=== PATIENT | male | born 1950 | race Caucasian/White ===

== ENCOUNTER 2024-05-27 08:10 | Inpatient (IN) ==
[2024-05-27] MEDS: SODIUM CHLORIDE 0.9% 1,000 ML IV ONE ×2 (08:26→10:00)
--- NOTE | 2024-05-27 08:26 | Emergency Department Note ---
Impression & Plan Syncope, Dental trauma, Avulsed tooth, Contusion of face, Cervical strain, acute, Anemia, RUSLAN (acute kidney injury), Acute UTI (urinary tract infection) ED Provider Note NAME: RICARDO [id number] JENISE AGE: 74 SEX: M : 1950 ARRIVES VIA: Ambulance INFORMANT: Patient, ED PROVIDER(S): Curtis Chamberlain DO CHIEF COMPLAINT: Trauma HPI: The patient is a 74-year-old male who presented to the emergency department after a syncopal episode. The patient fell forward striking his face. He does have dental trauma but he also complains of headache as well as neck pain. The patient was placed into a collar and arrives at the emergency department via ambulance. The patient states has not been eating or drinking recently. He was noted to have hypotension prior to arrival. There was no reported fever. The patient denies having any black or tarry stools. He does complain of abdominal pain as well as chest pain. The patient states that he spit out the tooth that was his front tooth. He has significant dental caries. The patient reportedly had a nosebleed as well but he is denying this at this time. This was given a report from the senior care. The patient does not take any blood thinners. There was a loss of consciousness associated with the syncope. ROS: See above HPI for pertinent positives & negatives. A total of 10 systems reviewed and were otherwise negative. PAST MEDICAL HISTORY: See Below PAST SURGICAL HISTORY: See Below FAMILY HISTORY: See Below SOCIAL HISTORY: See Below HOME MEDICATIONS: See Below ALLERGIES: See Below VITALS: See Below PHYSICAL EXAMINATION: GENERAL: The is awake and alert. He is very anxious. EYES: The conjunctivae are clear. The pupils are round and reactive. EARS, NOSE, MOUTH AND THROAT: The nose is without any evidence of any deformity. Missing tooth was noted in the front upper gumline. No active bleeding was noted. NECK: Rigid cervical collar was placed prior to arrival. RESPIRATORY: Normal respiratory effort is noted there is no evidence of wheezing rhonchi or rales CARDIOVASCULAR: Regular rate and rhythm noted there no murmurs rubs or gallops normal S1 normal S2. GASTROINTESTINAL: The abdomen was distended. There is diffuse tenderness to palpation but no guarding or rigidity. BACK: No midline tenderness or or step-off noted range of motion in flexion extension as well as rotation no signs of muscle spasm noted MUSCULOSKELETAL/EXTREMITIES: There is no evidence of gross deformity full range of motion is noted in the hips and shoulders. SKIN: There is no obvious evidence of any rash. There are no petechiae, pallor or cyanosis noted. NEUROLOGIC: Patient is awake alert and oriented x3 strength is symmetric patellar reflexes are 2+ bilaterally MEDICAL DECISION MAKING: The patient is a 74-year-old male who presented to the emergency department for an evaluation after having a syncopal episode. The patient fell forward striking his face. He had an avulsed tooth. He also had dental trauma and facial contusion. Patient was found to have hypotension in the emergency department. He was treated with IV fluids. No obvious source of infection could be found. The patient was reevaluated multiple times. I discussed the patient's laboratory and radiographic studies with him. Given his findings I discussed his condition with the on-call [facility] hospitalist. They have agreed to evaluate the patient in the emergency department for further management and disposition. Triage Nursing notes reviewed. Prior medical records reviewed Vital Signs: reviewed and remarkable for initial hypotension. Differential diagnosis: Vasovagal event, dehydration, infection, hypoglycemia, electrolyte abnormalities, cardiac sources, intracerebral event, pulmonary embolism, seizure, toxicologic, neurologic, as well as other pathologies. ER treatment provided: See below Diagnostics interpreted by me: ECG: EKG was obtained in the emergency department. My interpretation is sinus bradycardia at 56 bpm. There is no ectopy. There is no acute ST segment abnormalities noted. This was compared to a tracing from June 02, 2023. There was a decrease in the rate otherwise no changes were noted. Cardiac Monitoring: An order was placed for continuous cardiac monitoring. The monitor shows a rate of 82 bpm with sinus rhythm. Laboratory studies: As stated above and show below. Imaging studies: See below. Radiographic imaging was reviewed by myself Consultation(s): I discussed this case with Dr. Yan who is on-call for the [facility] Hospitalist group. Past Med/Surg History Problem List (Updated 05/27/24 @ 12:20 by Curtis Chamberlain DO) Acute UTI (urinary tract infection) (Acute) RUSLAN (acute kidney injury) (Acute) Anemia (Acute) Cervical strain, acute (Acute) Contusion of face (Acute) Avulsed tooth (Acute) Dental trauma (Acute) Syncope (Acute) Encounter for pre-operative examination Gross hematuria Bladder stone Medical History Myelodysplastic syndrome Chronic anemia Inmate in correctional facility [facility] GERD (gastroesophageal reflux disease) Osteoarthritis BPH (benign prostatic hyperplasia) Hypothyroid Hyperlipemia Chronic pain HTN (hypertension) Adjustment disorder with mixed anxiety and depressed mood Paroxysmal SVT (supraventricular tachycardia) 08/22/2021 Surgical History Surgical history unknown Social History Smoking Status: Unknown if ever smoked Second Hand Exposure: No; Do You Dip or Chew Tobacco: No (PENG Ramírez); Hx Alcohol Use: No ([facility] Ramírez) Hx Substance Use: No (PENG Ramírez) Preferred Language: Lao Communication Ability: Effective Rock Duster Required: No Beliefs That Will Affect Care: None Current Living Situation: Other Current Living Situation Comment: [facility] Feels Safe at Home: Yes Allergies Allergies Allergy/AdvReac Type Severity Reaction Status Date / Time No Known Allergies Allergy Verified 06/02/23 15:59 Home Meds Home Medications Medication Instructions Recorded Confirmed atorvastatin 40 mg tablet 40 mg PO QAM 06/20/22 06/02/23 duloxetine 60 mg capsule,delayed 60 mg PO QAM 06/20/22 06/02/23 release levothyroxine 112 mcg capsule 112 mcg PO QAM 06/20/22 06/02/23 duloxetine 30 mg capsule,delayed 30 mg PO DAILY 06/02/23 06/02/23 release lisinopril 10 mg tablet 10 mg PO DAILY 06/02/23 06/02/23 Results & Data (ED) Vital Signs Vital Signs - 24 hr 05/27/24 08:12 05/27/24 08:30 05/27/24 08:31 Temperature 36.8 C Temperature Source Oral Pulse Rate 62 59 L 57 L Pulse Rate [Apical] Pulse Rate from SpO2 Sensor Respiratory Rate 20 15 Respiratory Effort / Characteristics Non-Labored Respiratory Depth Normal Blood Pressure 104/64 Blood Pressure [Left Arm] Blood Pressure Mean 77 Blood Pressure Mean [Left Arm] Pulse Oximetry 97 Oxygen Delivery Method Room Air Sepsis Recent Fever Within 48 Hours No Sepsis New/Unexplained Change in Mental Status Yes Sepsis Action Taken by Nursing No Action Required 05/27/24 08:42 05/27/24 08:44 05/27/24 08:46 Temperature Temperature Source Pulse Rate 63 Pulse Rate [Apical] 59 L Pulse Rate from SpO2 Sensor 63 Respiratory Rate 12 20 Respiratory Effort / Characteristics Respiratory Depth Blood Pressure Blood Pressure [Left Arm] 112/67 Blood Pressure Mean Blood Pressure Mean [Left Arm] 82 Pulse Oximetry 99 99 99 Oxygen Delivery Method Room Air Room Air Sepsis Recent Fever Within 48 Hours Sepsis New/Unexplained Change in Mental Status Sepsis Action Taken by Nursing 05/27/24 09:02 05/27/24 09:06 05/27/24 09:12 Temperature Temperature Source Pulse Rate 88 77 Pulse Rate [Apical] Pulse Rate from SpO2 Sensor 87 76 Respiratory Rate 23 22 Respiratory Effort / Characteristics Respiratory Depth Blood Pressure Blood Pressure [Left Arm] 116/67 Blood Pressure Mean Blood Pressure Mean [Left Arm] 83 Pulse Oximetry 99 99 Oxygen Delivery Method Sepsis Recent Fever Within 48 Hours Sepsis New/Unexplained Change in Mental Status Sepsis Action Taken by Nursing 05/27/24 09:21 05/27/24 09:33 05/27/24 09:42 Temperature Temperature Source Pulse Rate 77 79 61 Pulse Rate [Apical] Pulse Rate from SpO2 Sensor 76 79 61 Respiratory Rate 13 17 17 Respiratory Effort / Characteristics Respiratory Depth Blood Pressure 95/77 L 117/65 Blood Pressure [Left Arm] Blood Pressure Mean 83 82 Blood Pressure Mean [Left Arm] Pulse Oximetry 99 97 100 Oxygen Delivery Method Sepsis Recent Fever Within 48 Hours Sepsis New/Unexplained Change in Mental Status Sepsis Action Taken by Nursing 05/27/24 10:00 05/27/24 12:00 Temperature Temperature Source Pulse Rate Pulse Rate [Apical] 62 60 Pulse Rate from SpO2 Sensor Respiratory Rate 19 20 Respiratory Effort / Characteristics Respiratory Depth Blood Pressure Blood Pressure [Left Arm] 115/66 94/53 L Blood Pressure Mean Blood Pressure Mean [Left Arm] 82 66 Pulse Oximetry 98 98 Oxygen Delivery Method Room Air Room Air Sepsis Recent Fever Within 48 Hours Sepsis New/Unexplained Change in Mental Status Sepsis Action Taken by Detention Medications Current Medication List: was personally reviewed by me Laboratory Data Attestation: I reviewed the patient's lab results. 05/27/24 09:10 05/27/24 09:13 Lab Results 05/27/24 05/27/24 05/27/24 Range/Units 08:30 08:36 09:10 WBC 4.69 L (4.8-10.8) K/ul RBC 3.45 L (4.70-6.10) M/uL Hgb 10.1 L (14.0-18.0) g/dl POC Hgb 12.6 L (14.0-18.0) g/dl Hct 31.8 L (42.0-52.0) % POC Hct 37 L (42-52) % MCV 92.2 (80.0-100.0) fL MCH 29.3 (25.0-34.0) pg MCHC 31.8 L (32.0-36.0) g/dL RDW Std Deviation 63.9 H (36.4-46.3) fL RDW Coeff of Brissa 19.2 H (11.5-14.5) % Plt Count 62 L (130-400) K/uL Immature Gran % (Auto) 1.9 % Neut % (Auto) 69.8 % Lymph % (Auto) 13.6 % Ches[place] % (Auto) 14.5 % Eos % (Auto) 0.0 % Baso % (Auto) 0.2 % Neut # (Auto) 3.27 (1.40-6.50) K/uL Lymph # (Auto) 0.64 L (1.20-3.40) K/uL [place] # (Auto) 0.68 H (0.11-0.59) K/uL Eos # (Auto) 0.00 (0.00-0.50) K/uL Baso # (Auto) 0.01 (0.00-0.20) K/uL Immature Gran # (Auto) 0.09 (0.01-0.20) K/uL Absolute Nucleated RBC 0.03 (0.00-0.12) K/uL Nucleated RBC % (auto) 0.6 % Polychromasia 1+ Anisocytosis Present Tear Drop Cells 1+ PT Cancelled INR Cancelled APTT Cancelled PTT Ratio Cancelled VBG pH 7.36 (7.36-7.41) VBG pCO2 44 (38-50) mmHg VBG pO2 < 20 mmHg VBG HCO3 25 mmol/L VBG O2 Saturation < 60.0 % VBG Base Excess -0.8 mEq/L POC Sodium 139 (135-144) mmol/L Sodium 139 (136-145) mmol/L POC Potassium 6.2 H* (3.3-5.0) mmol/L Potassium TNP POC Chloride 103 (101-112) mmol/L Chloride 104 (98-107) mmol/L Carbon Dioxide 27 (21-32) mmol/L POC Total CO2 25 (24-31) mmol/L Anion Gap 8 (3-11) POC Anion Gap 18.0 (16-25) mmol/L POC BUN 30 H (7-18) mg/dl BUN 23 (6-23) mg/dl Creatinine 1.60 H (0.6-1.4) mg/dl POC Creatinine 1.7 H (0.6-1.3) mg/dl Est Cr Clr Drug Dosing 39.8 ml/min eGFR 44.65 BUN/Creatinine Ratio 14.4 (10-20) Glucose 118 H (70-99(Fasting)) mg/dl POC Glucose (other) 118 H (70-99) mg/dl Lactate 2.3 H* (0.4-2.0) mmol/L Calcium 10.0 (8.6-10.3) mg/dl POC Ioniz Calcium Nnamdi 1.16 (1.12-1.32) mmol/l Magnesium 2.3 (1.7-2.4) mg/dl Total Bilirubin 1.0 (0.2-1.0) mg/dl Direct Bilirubin TNP AST TNP ALT 13 (7-52) U/L Alkaline Phosphatase 75 (34-104) U/L Troponin I High Sens 4.0 (0-20) pg/ml Total Protein 8.0 (6.0-8.3) gm/dl Albumin 4.7 (3.4-5.0) gm/dl Procalcitonin Cancelled < 0.02 Urine Color Urine Appearance (Clear) Urine pH (4.5-7.5) Ur Specific Harrison (1.000-1.030) Urine Protein (Negative) Urine Glucose (UA) (Negative) Urine Ketones (Negative) Urine Blood (Negative) Urine Nitrite (Negative) Urine Bilirubin (Negative) Urine Urobilinogen (Negative) Ur Leukocyte Esterase (Negative) Urine WBC (Auto) (0-5) /hpf Urine RBC (Auto) (0-2) /hpf U Hyaline Cast (Auto) (0-2) /lpf U Epithel Cells (Auto) (0-2) /hpf Urine Bacteria (Auto) (None Seen) SARS-CoV-2 (PCR) NEGATIVE (Negative) Influenza Type A (PCR) Negative (Neg) Influenza Type B (PCR) Negative (Neg) RSV (RT-PCR) Negative (Neg) 05/27/24 05/27/24 05/27/24 Range/Units 09:11 09:13 11:40 WBC (4.8-10.8) K/ul RBC (4.70-6.10) M/uL Hgb (14.0-18.0) g/dl POC Hgb (14.0-18.0) g/dl Hct (42.0-52.0) % POC Hct (42-52) % MCV (80.0-100.0) fL MCH (25.0-34.0) pg MCHC (32.0-36.0) g/dL RDW Std Deviation (36.4-46.3) fL RDW Coeff of Brissa (11.5-14.5) % Plt Count (130-400) K/uL Immature Gran % (Auto) % Neut % (Auto) % Lymph % (Auto) % Ches[place] % (Auto) % Eos % (Auto) % Baso % (Auto) % Neut # (Auto) (1.40-6.50) K/uL Lymph # (Auto) (1.20-3.40) K/uL [place] # (Auto) (0.11-0.59) K/uL Eos # (Auto) (0.00-0.50) K/uL Baso # (Auto) (0.00-0.20) K/uL Immature Gran # (Auto) (0.01-0.20) K/uL Absolute Nucleated RBC (0.00-0.12) K/uL Nucleated RBC % (auto) % Polychromasia Anisocytosis Tear Drop Cells PT 11.6 INR 1.1 APTT 26 PTT Ratio 1.0 VBG pH (7.36-7.41) VBG pCO2 (38-50) mmHg VBG pO2 mmHg VBG HCO3 mmol/L VBG O2 Saturation % VBG Base Excess mEq/L POC Sodium (135-144) mmol/L Sodium (136-145) mmol/L POC Potassium (3.3-5.0) mmol/L Potassium 4.2 POC Chloride (101-112) mmol/L Chloride (98-107) mmol/L Carbon Dioxide (21-32) mmol/L POC Total CO2 (24-31) mmol/L Anion Gap (3-11) POC Anion Gap (16-25) mmol/L POC BUN (7-18) mg/dl BUN (6-23) mg/dl Creatinine (0.6-1.4) mg/dl POC Creatinine (0.6-1.3) mg/dl Est Cr Clr Drug Dosing ml/min eGFR BUN/Creatinine Ratio (10-20) Glucose (70-99(Fasting)) mg/dl POC Glucose (other) (70-99) mg/dl Lactate 1.5 (0.4-2.0) mmol/L Calcium (8.6-10.3) mg/dl POC Ioniz Calcium Nnamdi (1.12-1.32) mmol/l Magnesium (1.7-2.4) mg/dl Total Bilirubin (0.2-1.0) mg/dl Direct Bilirubin 0.3 H AST 14 ALT (7-52) U/L Alkaline Phosphatase (34-104) U/L Troponin I High Sens (0-20) pg/ml Total Protein (6.0-8.3) gm/dl Albumin (3.4-5.0) gm/dl Procalcitonin Urine Color Yellow Urine Appearance Clear (Clear) Urine pH 6.0 (4.5-7.5) Ur Specific Harrison 1.039 H (1.000-1.030) Urine Protein Trace H (Negative) Urine Glucose (UA) Negative (Negative) Urine Ketones Negative (Negative) Urine Blood Negative (Negative) Urine Nitrite Negative (Negative) Urine Bilirubin Negative (Negative) Urine Urobilinogen Negative (Negative) Ur Leukocyte Esterase 2+ H (Negative) Urine WBC (Auto) >50 H (0-5) /hpf Urine RBC (Auto) 0-2 (0-2) /hpf U Hyaline Cast (Auto) 3-5 H (0-2) /lpf U Epithel Cells (Auto) 0-2 (0-2) /hpf Urine Bacteria (Auto) None Seen (None Seen) SARS-CoV-2 (PCR) (Negative) Influenza Type A (PCR) (Neg) Influenza Type B (PCR) (Neg) RSV (RT-PCR) (Neg) Administered Medications Discontinued Medications Sodium Chloride (Nss) 1,000 mls @ 999 mls/hr IV .Q1H1M ONE Stop: 05/27/24 09:21 Last Infusion: 05/27/24 09:55 Dose: Infused Documented By: Admin: 05/27/24 08:26 Dose: 999 mls/hr Documented By: ES Sodium Chloride (Nss) 1,000 mls @ 999 mls/hr IV .Q1H1M ONE Stop: 05/27/24 10:50 Last Infusion: 05/27/24 11:11 Dose: Infused Documented By: Admin: 05/27/24 10:00 Dose: 999 mls/hr Documented By: ML Ioversol (Optiray 320 125ml) 119 ml IV ONCE ONE Stop: 05/27/24 08:59 Last Admin: 05/27/24 08:53 Dose: 119 ml Documented By: BRStephanie Imaging Data Attestation: I personally reviewed and interpreted this imaging study as follows: My Impression: CT the brain was obtained in the emergency department. My interpretation is no intracranial hemorrhage or mass effect, final report below. CT of the chest was obtained in the emergency department. My interpretation is no free air or definite filtrate, final report below. Radiologist's Impression: Abdomen/Pelvis CT 05/27/24 08:[address] WITH IV CONTRAST HISTORY: Acute abdominal trauma status post fall trauma TECHNIQUE: Multiaxial CT images of the abdomen and pelvis were performed following the IV administration of 119 cc of Optiray, A dose lowering technique was utilized adhering to the principles of ALARA. COMPARISON STUDY: CTA chest of same day, CT abdomen and pelvis June 02, 2023 FINDINGS: Mild subsegmental bibasilar atelectasis versus scarring. No pneumoperitoneum. Unremarkable spleen, pancreas and adrenal glands. Contracted gallbladder with cholelithiasis. Unremarkable liver. Patent portal vein. Nonobstructing calculi in the kidneys redemonstrated measuring up to 5 mm in the interpolar left kidney. 2 mm calculus of the superior pole right kidney. No ureteral calculi or hydronephrosis. Prostatomegaly. Urinary bladder wall thickening which a angulation and increased enhancement. Atherosclerosis of the aorta and branch vessels. No lymphadenopathy. Small hiatal hernia with distal esophageal wall thickening. There is mild circumferential wall thickening of the rectum and rectosigmoid junction. Moderate colonic fecal retention. Noninflamed appendix. ORIF changes within the left hemipelvis. Degenerative changes of the spine, pelvis and hips. No acute fracture identified. Chronic compression deformity with vertebroplasty changes at L5. Cortical thickening at S3 suggestive of a healed chronic fracture. Numerous chronic thoracolumbar compression deformities appear unchanged. IMPRESSION: 1. No acute posttraumatic intra-abdominal or intrapelvic abnormality identified. 2. No acute fracture. 3. Nonobstructing bilateral nephrolithiasis. 4. Cholelithiasis. 5. Prostamegaly with chronic outlet obstruction. 6. Nonspecific mild wall thickening of the rectosigmoid may be secondary to partial distention. A mild proctocolitis could appear similarly. 7. Small hiatal hernia with suggestion of distal esophagitis. ACT 112: Negative or not required by law. The above report was generated using voice recognition software. It may contain grammatical, syntax or spelling errors. Electronically signed by: Marco Archer M.D. 05/27/2024 9:[address] 05/27/24 08:21 CT cervical spine wo con CLINICAL HISTORY: 74 years-old Male with trauma. Acute neck pain status post fall COMPARISON: June 02, 2023. TECHNIQUE: Multiple axial CT images of the cervical spine were obtained without contrast. A dose lowering technique was utilized adhering to the principles of ALARA. FINDINGS: No acute fracture or subluxation identified. Demineralized appearance of the bones with multilevel moderate to severe intervertebral disc space narrowing redemonstrated. The cervical soft tissues appear unremarkable. Medial deviation of the right vocal fold. The visualized lung apices appear clear. IMPRESSION: No acute cervical spine fracture or subluxation identified. ACT 112: Negative or not required by law. The above report was generated using voice recognition software. It may contain grammatical, syntax or spelling errors. Electronically signed by: Marco Archer M.D. 05/27/2024 9:48 AM Chest CTA 05/27/24 08:21 CT ANGIOGRAPHY OF THE CHEST, PULMONARY EMBOLUS PROTOCOL CLINICAL HISTORY: Fall. COMPARISON STUDY: Chest CT June 02, 2023. TECHNIQUE: Following IV administration of 119 mL of Optiray, helical axial images of the chest were obtained utilizing the pulmonary embolus protocol. Maximal intensity projections and sagittal and coronal reformats were viewed on an independent 3D workstation. IV contrast was administered without complication. Automated exposure control was utilized for the study. A dose lowering technique was utilized adhering to the principles of ALARA. FINDINGS: No pulmonary emboli are identified. There is no thoracic aortic dissection. No pericardial effusion is present. The heart is mildly enlarged. No mediastinal hematoma is present. There is a small hiatal hernia with mild distal esophageal wall thickening. No pneumothorax or pleural effusion is present. Subpleural groundglass opacities favor atelectasis. There are no suspicious pulmonary nodules. No acute fractures within the bony thorax are present. There are old, healed bilateral rib fractures. There are gallstones within the gallbladder. The abdomen and pelvis CT will be reported separately. IMPRESSION: 1. No acute traumatic findings within the chest. 2. No pulmonary emboli identified. 3. Small hiatal hernia. Circumferential distal esophageal wall thickening which is nonspecific although may reflect esophagitis. ACT 112: Negative or not required by law. Electronically signed by: Tevin Sequeira M.D. 05/27/2024 9:[address] 05/27/24 08:21 CT head/brain wo con CLINICAL HISTORY: 74 years-old Male with trauma. Acute head trauma TECHNIQUE: Multiple axial CT images of the head were obtained without contrast. A dose lowering technique was utilized adhering to the principles of ALARA. CT DOSE: 3309.05 mGy.cm COMPARISON: CT cervical spine of same day, head CT June 02, 2023 FINDINGS: No acute intracranial hemorrhage, midline shift, intracranial mass, hydrocephalus, territorial ischemia or abnormal extra-axial collection. Involutional changes with chronic microvascular ischemic disease. The calvarium is intact. Chronic nasal bone fractures. The paranasal sinuses, mastoid air cells, and middle ear cavities are clear. IMPRESSION: No acute intracranial abnormality or calvarial fracture. ACT 112: Negative or not required by law. The above report was generated using voice recognition software. It may contain grammatical, syntax or spelling errors. Electronically signed by: Marco Archer M.D. 05/27/2024 9:44 AM Discharge Plan Visit Data Chief Complaint: Fall Stated Complaint: fall, facial injury ED Provider: Curtis Chamberlain Discharge Problem: Syncope, Dental trauma, Avulsed tooth, Contusion of face, Cervical strain, acute, Anemia, RUSLAN (acute kidney injury), Acute UTI (urinary tract infection) Patient Disposition: Being Evaluated by Hospitalist Forms Stand Alone Forms: [facility] Prescriptions Prescriptions: No Action duloxetine 60 mg capsule,delayed release(DR/EC) 60 mg PO QAM Rx Instructions: TOTAL DOSE 90 MG--TAKES WITH 30 MG CAP. atorvastatin 40 mg tablet 40 mg PO QAM levothyroxine 112 mcg capsule 112 mcg PO QAM lisinopril 10 mg Tablet 10 mg PO DAILY duloxetine 30 mg Capsule,Delayed Release(Dr/Ec) 30 mg PO DAILY Rx Instructions: TOTAL DOSE 90 MG--TAKES WITH 60 MG CAP. Referrals Referrals: PENG,Darrell [Primary Care Provider] - Discharge Problem: Syncope Qualifiers: Syncope type: unspecified Qualified Code(s): R55 - Syncope and collapse Dental trauma Qualifiers: Encounter type: initial encounter Qualified Code(s): S09.93XA - Unspecified injury of face, initial encounter Avulsed tooth Qualifiers: Encounter type: initial encounter Qualified Code(s): S03.2XXA - Dislocation of tooth, initial encounter Contusion of face Qualifiers: Encounter type: initial encounter Qualified Code(s): S00.83XA - Contusion of other part of head, initial encounter Cervical strain, acute Qualifiers: Encounter type: initial encounter Qualified Code(s): S16.1XXA - Strain of muscle, fascia and tendon at neck level, initial encounter Anemia Qualifiers: Anemia type: unspecified type Qualified Code(s): D64.9 - Anemia, unspecified
[2024-05-27] MEDS: OPTIRAY 320 125ml IV ONE (08:53)
[2024-05-27 09:11] LABS: iSTAT Creatinine 1.7 mg/dl (0.6-1.3); iSTAT Hemoglobin 12.6 g/dl (14.0-18.0); iSTAT Ionized Calcium 1.16 mmol/l (1.12-1.32); iSTAT Potassium 6.2 mmol/L (3.3-5.0)
[2024-05-27 09:13] LABS: Alanine Aminotransferase 13 U/L (7-52); Albumin Level 4.7 gm/dl (3.4-5.0); Alkaline Phosphatase 75 U/L (34-104); Anion Gap 8 (3-11); BUN Creatinine Ratio 14.4 (10-20); Blood Urea Nitrogen 23 mg/dl (6-23); Carbon Dioxide 27 mmol/L (21-32); Chloride 104 mmol/L (98-107); Creatinine Clr Calc Pharmacy 39.8 ml/min; Glucose 118 mg/dl (70-99(Fasting)); Magnesium 2.3 mg/dl (1.7-2.4); Sodium 139 mmol/L (136-145)
--- NOTE | 2024-05-27 09:29 | CT Scan Report ---
CT ANGIOGRAPHY OF THE CHEST, PULMONARY EMBOLUS PROTOCOL CLINICAL HISTORY: Fall. COMPARISON STUDY: Chest CT June 02, 2023. TECHNIQUE: Following IV administration of 119 mL of Optiray, helical axial images of the chest were o btained utilizing the pulmonary embolus protocol. Maximal intensity projections and sagittal and cor onal reformats were viewed on an independent 3D workstation. IV contrast was administered without co mplication. Automated exposure control was utilized for the study. A dose lowering technique was ut ilized adhering to the principles of ALARA. FINDINGS: No pulmonary emboli are identified. There is no thoracic aortic dissection. No pericardial effusion is present. The heart is mildly enlarged. No mediastinal hematoma is present. There is a sm all hiatal hernia with mild distal esophageal wall thickening. No pneumothorax or pleural effusion is present. Subpleural groundglass opacities favor atelectasis. There are no suspicious pulmonary nodul es. No acute fractures within the bony thorax are present. There are old, healed bilateral rib fractu res. There are gallstones within the gallbladder. The abdomen and pelvis CT will be reported separate ly. IMPRESSION: 1. No acute traumatic findings within the chest. 2. No pulmonary emboli identified. 3. Small hiatal hernia. Circumferential distal esophageal wall thickening which is nonspecific althou gh may reflect esophagitis. ACT 112: Negative or not required by law. Electronically signed by: Tevin Sequeira M.D. 05/27/2024 9:26 AM
[2024-05-27 09:31] LABS: Base Excess VBG -0.8 mEq/L; HCO3 VBG 25 mmol/L; Oxygen Saturation VBG < 60.0 %; PCO2 VBG 44 mmHg (38-50); PO2 VBG < 20 mmHg; pH VBG 7.36 (7.36-7.41)
[2024-05-27 09:40] LABS: Hematocrit (blood only) 31.8 % (42.0-52.0); Hemoglobin 10.1 g/dl (14.0-18.0); Mean Corpuscular Hemoglobin 29.3 pg (25.0-34.0); Mean Corpuscular Hgb Conc 31.8 g/dL (32.0-36.0); Mean Corpuscular Volume 92.2 fL (80.0-100.0); Nucleated RBC # (auto) 0.03 K/uL (0.00-0.12); Nucleated RBC % (auto) 0.6 %; Platelet Count 62 K/uL (130-400); RDW Coefficient of Variation 19.2 % (11.5-14.5); RDW Standard Deviation 63.9 fL (36.4-46.3); Red Blood Count 3.45 M/uL (4.70-6.10); White Blood Count 4.69 K/ul (4.8-10.8)
--- NOTE | 2024-05-27 09:46 | CT Scan Report ---
CT head/brain wo con CLINICAL HISTORY: 74 years-old Male with trauma. Acute head trauma TECHNIQUE: Multiple axial CT images of the head were obtained without contrast. A dose lowering tech nique was utilized adhering to the principles of ALARA. CT DOSE: 3309.05 mGy.cm COMPARISON: CT cervical spine of same day, head CT June 02, 2023 FINDINGS: No acute intracranial hemorrhage, midline shift, intracranial mass, hydrocephalus, territorial ischem ia or abnormal extra-axial collection. Involutional changes with chronic microvascular ischemic disea se. The calvarium is intact. Chronic nasal bone fractures. The paranasal sinuses, mastoid air cells, and middle ear cavities are clear. IMPRESSION: No acute intracranial abnormality or calvarial fracture. ACT 112: Negative or not required by law. The above report was generated using voice recognition software. It may contain grammatical, syntax o r spelling errors. Electronically signed by: Marco Archer M.D. 05/27/2024 9:44 AM
--- NOTE | 2024-05-27 09:50 | CT Scan Report ---
CT cervical spine wo con CLINICAL HISTORY: 74 years-old Male with trauma. Acute neck pain status post fall COMPARISON: June 02, 2023. TECHNIQUE: Multiple axial CT images of the cervical spine were obtained without contrast. A dose low ering technique was utilized adhering to the principles of ALARA. FINDINGS: No acute fracture or subluxation identified. Demineralized appearance of the bones with mul tilevel moderate to severe intervertebral disc space narrowing redemonstrated. The cervical soft tissues appear unremarkable. Medial deviation of the right vocal fold. The visualiz ed lung apices appear clear. IMPRESSION: No acute cervical spine fracture or subluxation identified. ACT 112: Negative or not required by law. The above report was generated using voice recognition software. It may contain grammatical, syntax o r spelling errors. Electronically signed by: Marco Archer M.D. 05/27/2024 9:48 AM
[2024-05-27 09:52] LABS: Influenza A virus by PCR Negative (Neg); Influenza B virus by PCR Negative (Neg); RSV by PCR Negative (Neg); SARS CoV2 RNA(COVID-19) Ceph NEGATIVE (Negative)
[2024-05-27 09:52] LABS: Anisocytosis Present; Basophils # (auto) 0.01 K/uL (0.00-0.20); Basophils % (auto) 0.2 %; Immature Granulocytes # (auto) 0.09 K/uL (0.01-0.20); Immature Granulocytes % (auto) 1.9 %; Lymphocytes # (auto) 0.64 K/uL (1.20-3.40); Lymphocytes % (auto) 13.6 %; Monocytes # (auto) 0.68 K/uL (0.11-0.59); Monocytes % (auto) 14.5 %; Neutrophils # (auto) 3.27 K/uL (1.40-6.50); Neutrophils % (auto) 69.8 %; Polychromasia 1+; Tear Drop Cells 1+
[2024-05-27 09:53] LABS: Bilirubin Direct 0.3 mg/dl (0-0.2); Potassium 4.2 mmol/L (3.5-5.1)
--- NOTE | 2024-05-27 09:55 | CT Scan Report ---
ABDOMEN AND PELVIS CT WITH IV CONTRAST HISTORY: Acute abdominal trauma status post fall trauma TECHNIQUE: Multiaxial CT images of the abdomen and pelvis were performed following the IV administrat ion of 119 cc of Optiray, A dose lowering technique was utilized adhering to the principles of ALARA . COMPARISON STUDY: CTA chest of same day, CT abdomen and pelvis June 02, 2023 FINDINGS: Mild subsegmental bibasilar atelectasis versus scarring. No pneumoperitoneum. Unremarkable spleen, pancreas and adrenal glands. Contracted gallbladder with cholelithiasis. Unremarkable liver. Patent portal vein. Nonobstructing calculi in the kidneys redemonstrated measuring up to 5 mm in the interpolar left kidn ey. 2 mm calculus of the superior pole right kidney. No ureteral calculi or hydronephrosis. Prostatom egaly. Urinary bladder wall thickening which a angulation and increased enhancement. Atherosclerosis of the aorta and branch vessels. No lymphadenopathy. Small hiatal hernia with distal esophageal wall thickening. There is mild circumferential wall thicke je of the rectum and rectosigmoid junction. Moderate colonic fecal retention. Noninflamed appendix. ORIF changes within the left hemipelvis. Degenerative changes of the spine, pel vis and hips. No acute fracture identified. Chronic compression deformity with vertebroplasty changes at L5. Cortical thickening at S3 suggestive of a healed chronic fracture. Numerous chronic thoracolu mbar compression deformities appear unchanged. IMPRESSION: 1. No acute posttraumatic intra-abdominal or intrapelvic abnormality identified. 2. No acute fracture. 3. Nonobstructing bilateral nephrolithiasis. 4. Cholelithiasis. 5. Prostamegaly with chronic outlet obstruction. 6. Nonspecific mild wall thickening of the rectosigmoid may be secondary to partial distention. A mil d proctocolitis could appear similarly. 7. Small hiatal hernia with suggestion of distal esophagitis. ACT 112: Negative or not required by law. The above report was generated using voice recognition software. It may contain grammatical, syntax o r spelling errors. Electronically signed by: Marco Archer M.D. 05/27/2024 9:53 AM
[2024-05-27 10:03] LABS: INR 1.1 (0.9-1.1); Partial Thromboplastin Time 26 Seconds (21-31); Prothrombin Time 11.6 Seconds (9.0-12.0)
--- NOTE | 2024-05-27 11:34 | History & Physical Report ---
Date of Service May 27, 2024 Assessment & Plan (1) Syncope: Plan: Syncope Poor p.o. intake in the last several days. Patient denies nausea/vomiting/abdominal pain, just notes he does not generally have a good appetite lays in bed all day since getting incarcerated and does not like present food Patient stood up and was walking to the door when he got lightheaded dizzy and suddenly syncopized. Reports he did not have much warning prior to this. No chest pain or chest pressure. No incontinence or seizure-like activity Patient is with an RUSLAN and clinically volume contracted with cracked mucous membranes. Suspect orthostatic with severe prerenal depletion EKG is without acute ischemic findings or heart block, high sensitive troponin is normal Will continue to hydrate, follow on medical telemetry overnight Patient denies any GI symptoms. Denies symptoms including dysuria/polyuria. Does have a history of intermittent hematuria, with UA with some leukocyte esterase and blood. Empirically covered with Rocephin pending UCx results Trauma series without evidence of intracranial, cervical, or solid organ injury/bleeding (2) Avulsed tooth: Plan: Patient is already seen dentist PENG Ramírez. Can have follow-up as outpatient for this (3) RUSLAN (acute kidney injury): Plan: Fluids as above, trend BMP daily Renally dose medications as needed Lisinopril held (4) GERD (gastroesophageal reflux disease): Plan: PPI (5) Hypothyroid: Plan: Continue Synthroid, TSH pending (6) Hyperlipemia: Plan: Continue atorvastatin (7) Adjustment disorder with mixed anxiety and depressed mood: Plan: Continue duloxetine Plan DVT prophylaxis: SCDs x 24 hours due to some bleeding from levels to site. Start heparin versus Lovenox based on renal function 05/28 Disposition: Medical telemetry CODE STATUS: Full code Diet: Liberalized regular, boost. Push orals History of Present Illness Primary Care Provider: PENG Ramírez Dung is a 74-year-old male with past medical history of anxiety/depression, hyperlipidemia, hypothyroidism, hypotension who presented with an episode of syn cope and is found to be with an RUSLAN. Poor p.o. intake in the last several days per signout. On ER assessment [id number] potassium initially reported to 6.2, on lab recheck this was corrected to 4.2; no hyperkalemia was present. EKG is without peaked T waves. Creatinine is acutely elevated 0.8 up to 1.6, although ratio was not elevated. Lactate 2.3, repeat pending at time of admission consu ltation. Patient has received 2 L NSS in the ER. Troponin is normal Procalcitonin is normal Quad screen is negative ER trauma evaluation including CThead with no acute intracranial abnormality/fracture. C-spine without fracture/subluxation. CTA chest shows no acute traumatic findings, no PE. Small hiatal hernia? Esophagitis is noted. CTA/P without acute intra-abdominal/intrapelvic abnormalities/no evidence of solid organ injury or bleeding. Mild wall thickening of the rectosigmoid colon? Partial distention versus mild proctocolitis. Small hiatal hernia with suggestion of esophagitis as noted. Urinary bladder wall thickening is noted. UA is pending. No presyncoptal sx. Per group home report pt became dizzy, went to walk to the door and had just got up, and subsequently passed out. Left upper tooth struck and was lost, naima at [facility] will see on dc. Did see patient prior to ER visit. Weak on his feet normally, but suddenly passed out today. Has felt more weak as he is not very active in the group home an dlays in bed all the time since his sentencing. No chest pain or chest pressure No recent illnesses. No fevers or chills. No abdomianl pain. Has had some loose bowels intermittently in the past but none in the last week to his knowledge. Reports he has a hard time remember details due to bad dementia. Appetite poor. Not very hungry in general. Poor PO 4-5 days, snacks a little on pastries but doesn't like the assisted food in general or pasta. No pain with meals. No abd pain. BMs brown, no melena/hematochezia/benton colored stools. Former smoker quit 1999, uses a vape now in group home No ETOH NKDA MedHx Revieweed: eHTN, hypothyroid,HLD, BPH/LUTS, adjustment disorder with anxiety/depression mixed. Takes baby aspirin daily for primary prevention. no hx stents/bipass. Denies CVA. Allergies Allergy/AdvReac Type Severity Reaction Status Date / Time No Known Allergies Allergy Verified 06/02/23 15:59 Home Medications Medication Instructions Recorded Confirmed Type atorvastatin 40 mg tablet 40 mg PO QAM 06/20/22 06/02/23 History duloxetine 60 mg capsule,delayed 60 mg PO QAM 06/20/22 06/02/23 History release levothyroxine 112 mcg capsule 112 mcg PO QAM 06/20/22 06/02/23 History duloxetine 30 mg capsule,delayed 30 mg PO DAILY 06/02/23 06/02/23 History release lisinopril 10 mg tablet 10 mg PO DAILY 06/02/23 06/02/23 History Past Med/Surg History Problem List (Updated 05/27/24 @ 12:20 by Curtis Chamberlain DO) Acute UTI (urinary tract infection) (Acute) RUSLAN (acute kidney injury) (Acute) Anemia (Acute) Cervical strain, acute (Acute) Contusion of face (Acute) Avulsed tooth (Acute) Dental trauma (Acute) Syncope (Acute) Encounter for pre-operative examination Gross hematuria Bladder stone Medical History Myelodysplastic syndrome Chronic anemia Inmate in correctional facility [facility] GERD (gastroesophageal reflux disease) Osteoarthritis BPH (benign prostatic hyperplasia) Hypothyroid Hyperlipemia Chronic pain HTN (hypertension) Adjustment disorder with mixed anxiety and depressed mood Paroxysmal SVT (supraventricular tachycardia) 08/22/2021 Surgical History Surgical history unknown Social History Smoking Status: Unknown if ever smoked Second Hand Exposure: No; Do You Dip or Chew Tobacco: No (PENG Ramírez); Hx Alcohol Use: No (PENG Ramírez) Hx Substance Use: No (PENG Ramírez) Preferred Language: Guinean Communication Ability: Effective Outpatient Coordinator Required: No Beliefs That Will Affect Care: None Current Living Situation: Other Current Living Situation Comment: [facility] Ram[facility]rez Feels Safe at Home: Yes Physical Exam Physical Exam: General: No acute distress, cooperative. Oriented to name, place, year, month and answers questions appropriately. HEENT: Small amount of dried blood on the lower lip. Left upper front tooth absent with small area of blood at avulsion site, slight oozing is present. No other facial abnormality. Vision and hearing grossly intact. Pupils equal and reactive to light Pulm: CTAB A&P. -wheezes, -rales, -rhonchi. Symmetrical chest rise. No increased work of breathing. No respiratory distress. Cardiac: RRR, -mrg. Radial pulses intact and symmetrical. Abdominal: Nontender, nondistended, soft. BS present. Extremities: Warm, dry. No lower extremity edema Results & Data Results & Data Vital Signs (Past 12 Hours) Vital Signs Temp Pulse Pulse Resp BP BP Pulse Ox 05/27/24 10:00 62 19 115/66 98 05/27/24 09:42 61 17 117/65 100 05/27/24 09:33 79 17 95/77 L 97 05/27/24 09:21 77 13 99 05/27/24 09:12 77 22 99 05/27/24 09:06 88 23 99 05/27/24 09:02 116/67 05/27/24 08:46 59 L 20 112/67 99 05/27/24 08:44 99 05/27/24 08:42 63 12 99 05/27/24 08:31 57 L 05/27/24 08:30 59 L 15 05/27/24 08:12 36.8 C 62 20 104/64 97 O2 Del Method 05/27/24 10:00 Room Air 05/27/24 09:42 05/27/24 09:33 05/27/24 09:21 05/27/24 09:12 05/27/24 09:06 05/27/24 09:02 05/27/24 08:46 Room Air 05/27/24 08:44 Room Air 05/27/24 08:42 05/27/24 08:31 05/27/24 08:30 05/27/24 08:12 Room Air PG Care Time/CCT Total # of Minutes Spent Total Time Spent with Patient: Total time spent is greater than 50% in coordination of care (as documented) at patient's floor/unit and/or counseling patient: Coding Level of Care Code 69316 INT INP/OBS CARE 375MIN Diagnoses Syncope R55 Syncope type: unspecified Avulsed tooth S03.2XXA Encounter type: initial encounter RUSLAN (acute kidney injury) N17.9 GERD (gastroesophageal reflux disease) K21.9 Hypothyroid E03.9 Hyperlipemia E78.5 Adjustment disorder with mixed anxiety and depressed mood F43.23 (1) Syncope Syncope type: unspecified Qualified Code(s): R55 - Syncope and collapse (2) Avulsed tooth Encounter type: initial encounter Qualified Code(s): S03.2XXA - Dislocation of tooth, initial encounter
[2024-05-27 12:02] LABS: Appearance Urine Clear (Clear); Bacteria Urine Automated None Seen (None Seen); Bilirubin Urine Negative (Negative); Blood Urine Negative (Negative); Color Urine Yellow; Epithelial Cell Urine Auto 0-2 /hpf (0-2); Glucose Urine UA Negative (Negative); Ketones Urine Negative (Negative); Leukocyte Esterase Urine 2+ (Negative); Nitrite Urine Negative (Negative); Protein Urine Trace (Negative); RBC Urine Automated 0-2 /hpf (0-2); Specific Gravity Urine 1.039 (1.000-1.030); Urobilinogen Urine Negative (Negative); WBC Urine Automated >50 /hpf (0-5)
[2024-05-27] MEDS: cefTRIAXone SODIUM 2,000 MG/50 ML BAG IV STA (12:36)
[2024-05-27] MEDS ORDERED: ACETAMINOPHEN 325 MG TAB PO PRN (14:25)
[2024-05-27 14:36] VITALS: RESP 18
--- NOTE | 2024-05-27 15:36 | Electrocardiogram Report ---
Test Reason : Blood Pressure : */* mmHG Vent. Rate : 56 BPM Atrial Rate : 56 BPM P-R Int : 190 ms QRS Dur : 78 ms QT Int : 410 ms P-R-T Axes : 68 26 47 degrees QTcB Int : 395 ms Sinus bradycardia Otherwise normal ECG When compared with ECG of 02-Jun-2023 12:57, Vent. rate has decreased by 44 bpm QT has shortened Confirmed by Curtis Argueta ([id number]) on 05/27/2024 3:36:10 PM Referred By: [facility] Confirmed By: Curtis Argueta
[2024-05-27] MEDS: NICOTINE 14 MG/24 HR PATCH TD SCH (20:30)
[2024-05-28] MEDS: LEVOTHYROXINE SODIUM 137 MCG TABLET PO SCH (06:02)
[2024-05-28 07:16] VITALS: TEMP 97.9
[2024-05-28 08:03] LABS: Hematocrit (blood only) 29.4 % (42.0-52.0); Hemoglobin 9.4 g/dl (14.0-18.0); Mean Corpuscular Hemoglobin 29.1 pg (25.0-34.0); Nucleated RBC # (auto) 0.02 K/uL (0.00-0.12); Nucleated RBC % (auto) 0.9 %; Platelet Count 58 K/uL (130-400); RDW Coefficient of Variation 18.8 % (11.5-14.5); RDW Standard Deviation 62.7 fL (36.4-46.3); Red Blood Count 3.23 M/uL (4.70-6.10); White Blood Count 2.27 K/ul (4.8-10.8)
[2024-05-28 08:15] LABS: BUN Creatinine Ratio 21.6 (10-20); Calcium 9.1 mg/dl (8.6-10.3); Creatinine Clr Calc Pharmacy 83.9 ml/min
[2024-05-28 08:21] LABS: Eosinophils # (auto) 0.01 K/uL (0.00-0.50); Eosinophils % (auto) 0.4 %; Immature Granulocytes # (auto) 0.03 K/uL (0.01-0.20); Immature Granulocytes % (auto) 1.3 %; Lymphocytes # (auto) 0.91 K/uL (1.20-3.40); Lymphocytes % (auto) 40.1 %; Monocytes # (auto) 0.32 K/uL (0.11-0.59); Monocytes % (auto) 14.1 %; Neutrophils % (auto) 44.1 %; Polychromasia 1+; Tear Drop Cells 1+
[2024-05-28 08:31] LABS: Thyroid Stimulating Hormone 0.565 uIu/ml (0.300-4.500)
[2024-05-28] MEDS: ATORVASTATIN 40 MG TAB PO SCH (09:56)
[2024-05-28] MEDS: DULoxetine HCL 60 MG CAP PO SCH (09:56)
[2024-05-28 10:53] VITALS: BP 102/64; PULSE 67; O2SAT 100
[2024-05-28] MEDS: POLYETHYLENE (MIRALAX) 17 GM PACK PO PRN (11:12)
[2024-05-28] MEDS: CIPROFLOXACIN 250 MG TAB PO ONE (14:52)
--- NOTE | 2024-05-28 18:21 | Discharge Summary ---
Discharge Summary Date of Service May 28, 2024 Principal Dx & Hospital Course #1 = Principal Diagnosis (1) Syncope: Presented after syncopal episode at the long-term; patient stood up and was walking towards the door when he got lightheaded/dizzy and suddenly syncopized. Reports he did not have much warning prior to this. No chest pain or chest pressure. No incontinence or seizure-like activity reported. - Patient reported poor PO intake x 4-5 days. Reports this is due to not liking the long-term food. Denies nausea, vomiting, abdominal pain, or change in bowel habits - RUSLAN on admission, resolved after IV fluids - Clinically volume contracted on admission - Trauma series without evidence of intracranial, cervical, or solid organ injury/bleeding - EKG without acute ischemic findings or heart block, high sensitive troponin is normal - UA with some leukocyte esterase and WBC; denies symptoms > Empirically treated with Cipro 250 mg BID x 3 days - Orthostatic vital signs negative - Suspect syncopal episode was orthostatic syncope with severe prerenal depletion in setting of minimal PO intake over several days Discharged back to [facility] on 05/28 (2) Avulsed tooth: Patient is already seen dentist [facility]. Can have follow-up as outpatient for this (3) RUSLAN (acute kidney injury): RUSLAN on admission suspect due to dehydration/decreased PO intake over several days - Resolved after receiving IV fluids - Encouraged to stay hydrated (4) GERD (gastroesophageal reflux disease): Continue PPI (5) Hypothyroid: Continue Synthroid, TSH WNL (6) Hyperlipemia: Continue atorvastatin (7) Adjustment disorder with mixed anxiety and depressed mood: Continue duloxetine Plan CODE STATUS: Full code Notes For Next Care Provider Syncopal event at the long-term, suspect syncopal episode was orthostatic syncope with severe prerenal depletion in setting of minimal p.o. intake over several days. Patient reports he does not like the long-term food so he has not had any substantial food or drink x 4-5 days. RUSLAN on admission resolved after receiving IV fluids. UA showed leukocyte esterase and WBC. Discharged on Cipro 250 mg twice daily x 3 days. Medication Changes From Visit Cipro 250 mg twice daily x 3 days for uncomplicated UTI Admission HPI Per Admitting Provider Dung is a 74-year-old male with past medical history of anxiety/depression, hyperlipidemia, hypothyroidism, hypotension who presented with an episode of syncope and is found to be with an RUSLAN. Poor p.o. intake in the last several days per signout. On ER assessment [id number] potassium initially reported to 6.2, on lab recheck this was corrected to 4.2; no hyperkalemia was present. EKG is without peaked T waves. Creatinine is acutely elevated 0.8 up to 1.6, although ratio was not elevated. Lactate 2.3, repeat pending at time of admission consultation. Patient has received 2 L NSS in the ER. Troponin is normal Procalcitonin is normal Quad screen is negative ER trauma evaluation including CThead with no acute intracranial abnormality/fracture. C-spine without fracture/subluxation. CTA chest shows no acute traumatic findings, no PE. Small hiatal hernia? Esophagitis is noted. CTA/P without acute intra-abdominal/intrapelvic abnormalities/no evidence of solid organ injury or bleeding. Mild wall thickening of the rectosigmoid colon? Partial distention versus mild proctocolitis. Small hiatal hernia with suggestion of esophagitis as noted. Urinary bladder wall thickening is noted. UA is pending. No presyncoptal sx. Per long-term report pt became dizzy, went to walk to the door and had just got up, and subsequently passed out. Left upper tooth struck and was lost, [facility] Nancy will see on dc. Did see patient prior to ER visit. Weak on his feet normally, but suddenly passed out today. Has felt more weak as he is not very active in the long-term an dlays in bed all the time since his sentencing. No chest pain or chest pressure No recent illnesses. No fevers or chills. No abdomianl pain. Has had some loose bowels intermittently in the past but none in the last week to his knowledge. Reports he has a hard time remember details due to bad dementia. Appetite poor. Not very hungry in general. Poor PO 4-5 days, snacks a little on pastries but doesn't like the [facility] food in general or pasta. No pain with meals. No abd pain. BMs brown, no melena/hematochezia/benton colored stools. Former smoker quit 1999, uses a vape now in long-term No ETOH NKDA MedHx Revieweed: eHTN, hypothyroid,HLD, BPH/LUTS, adjustment disorder with anxiety/depression mixed. Takes baby aspirin daily for primary prevention. no hx stents/bipass. Denies CVA. Admission Exam Per Admitting Provider General: No acute distress, cooperative. Oriented to name, place, year, month and answers questions appropriately. HEENT: Small amount of dried blood on the lower lip. Left upper front tooth absent with small area of blood at avulsion site, slight oozing is present. No other facial abnormality. Vision and hearing grossly intact. Pupils equal and reactive to light Pulm: CTAB A&P. -wheezes, -rales, -rhonchi. Symmetrical chest rise. No increased work of breathing. No respiratory distress. Cardiac: RRR, -mrg. Radial pulses intact and symmetrical. Abdominal: Nontender, nondistended, soft. BS present. Extremities: Warm, dry. No lower extremity edema Discharge Exam General: No acute distress, nondiaphoretic, well-developed, well-nourished. HEENT: PERRLA. Left upper front tooth absent without bleeding noted. No other facial abnormality noted. Cardiac: Regular rate and rhythm without murmurs gallops or rubs. Pulm: Clear to auscultation bilaterally without wheezes, rales or rhonchi. No respiratory distress. 100% on room air. Abdominal: Soft, nontender, nondistended. Bowel sounds present. Neuro: A&O x3. No focal neurological deficits. Discharge Plan Discharge Items [facility] Reason For Visit: SYNCOPE, RUSLAN Discharge Diagnosis: Syncopal episode, RUSLAN resolved Activity: Resume your previous activity Non-emergency contact: Primary Care Provider Call non-emergency contact if: you have any medication questions Follow-up/Referrals: Nancy KHOURY [Primary Care Provider] - Diet: Regular Addtl Attending Provider Instructions: FOR SCI NANCY: Suspect syncopal episode was due to orthostatic syncope with severe prerenal depletion in the setting of decreased PO intake x 4-5 days. He was found to have an RUSLAN on admission, which resolved after receiving fluids. His imaging was unremarkable for acute abnormalitiesimaging included head CT, C-spine CT, abdomen/pelvis CT, and chest CTA. His UA was positive for leukocyte esterase and WBC. Recommending Ciprofloxacin 250 mg BID x 3 days. Will provide first dose prior to discharge, so he will need evening dose tonight (05/28) when returned to facility. No additional changes to home medications. Pending Studies at Discharge: Yes (Urine culture) Stand-Alone Forms: My [facility] Skilled Items Patient informed of condition?: Yes Discharge Level of Care: Other Communicable Disease: No Discharge Prognosis: Stable Lines: None Urinary Catheter: No Medications and DC Order Prescriptions: New ciprofloxacin HCl [Cipro] 250 mg tablet 250 mg PO BID Qty: 6 0RF Continued duloxetine 60 mg capsule,delayed release(DR/EC) 120 mg PO DAILY atorvastatin 40 mg tablet 40 mg PO HS levothyroxine 112 mcg capsule 137 mcg PO QAM lisinopril 10 mg Tablet 10 mg PO DAILY Artificial Tears 1 drp OPB QID PRN (Reason: Other) capsaicin 0.075 % Cream 1 applic TOPICAL TID PRN (Reason: Other) Rx Instructions: do not wash area for at least 30 min after application tamsulosin 0.4 mg Capsule 0.8 mg PO HS polyethylene glycol 3350 [Miralax] 17 gram/dose Powder 17 g PO DAILY PRN (Reason: Constipation) Rx Instructions: 1 tablespoonful cholecalciferol (vitamin D3) 25 mcg (1,000 unit) Tablet 25 mcg PO DAILY Discharge Orders: Discharge Order (Routine); Ordered 05/28/24 Ordered By: Yakelin Nesbitt Admission Data Admit Date/Time: 05/27/24 12:45 Attending Provider: Bret Lynch Admit Provider: Guru Waters Primary Care Provider: Nancy KHOURY Other Providers: Guru Waters Other Interventions: Discharge Summary Assessment (RN) Last Done: 05/28/24 15:16 Hospital Stay Data Consultations 05/27/24 11:36 ED Decision to Admit Stat Diagnostic Imagining Performed 05/27/24 08:21 CT abd pelvis IV con only Stat CT angio chest PE protocol Stat CT cervical spine wo con Stat CT head/brain wo con Stat Pending Results Patient Have Any Pending Studies at Discharge: Yes (Urine culture) Discharge Instructions Given to Patient (Per Discharging Provider) FOR PENG CRUZ: Suspect syncopal episode was due to orthostatic syncope with severe prerenal depletion in the setting of decreased PO intake x 4-5 days. He was found to have an RUSLAN on admission, which resolved after receiving fluids. His imaging was unremarkable for acute abnormalitiesimaging included head CT, C-spine CT, abdomen/pelvis CT, and chest CTA. His UA was positive for leukocyte esterase and WBC. Recommending Ciprofloxacin 250 mg BID x 3 days. Will provide first dose prior to discharge, so he will need evening dose tonight (05/28) when returned to facility. No additional changes to home medications. Total Time Total Time Spent Total Time Spent (In Minutes): Greater than 30 minutes spent completing this discharge process including direct patient care, medication reconciliation, documentation, review of labs and images, and coordination of care. Coding Level of Care Code 50793 INP/OBS DISCH >30 MIN Diagnoses Syncope R55 Syncope type: unspecified Avulsed tooth S03.2XXA Encounter type: initial encounter RUSLAN (acute kidney injury) N17.9 GERD (gastroesophageal reflux disease) K21.9 Hypothyroid E03.9 Hyperlipemia E78.5 Adjustment disorder with mixed anxiety and depressed mood F43.23
[2024-05-28] MEDS ORDERED: TAMSULOSIN HCL 0.4 MG CAP PO SCH (21:00)
--- NOTE | 2024-05-29 04:39 | Coding Query ---
CODING QUERY To promote full compliance with coding requirements relating to patient care, provider participation is requested in all cases of liner machine operator helper uncertainty. Please assist us with the question(s) below: Coding Question(s): Pt admitted with RUSLAN. Brief inpatient stay. On discharge urine analysis positive for leukocyte esterase with WBC's. Pt discharged with Cipro 250 mg b.i.d. for 3 days. Please document , in known or suspected, the diagnosis / reason for antibiobic. Thanks for your help! Ajith Santos [facility]ING [facility] Physician's Response(s): UTI poa Principal Diagnosis: "that condition established after study, to be chiefly responsible for occasioning the admission of the patient to the hospital for care." Co-Existing Principal Diagnosis: "when two or more diagnoses equally meet the criteria for principal diagnosis as determined by the circumstances of admission, diagnostic work up, and/or therapy provided, and the Alphabetic Index, Tabular List, or another coding guideline does not provide sequencing direction, any one of the diagnoses may be sequenced first." "When the physician has documented what appears to be a current diagnosis in the body of the record, but has not included the diagnosis in the final diagnostic statement, the physician should be asked whether the diagnosis should be added." (Source Coding [facility] 2 QTR90. p3-4) PILLO
== END 2024-05-28 15:19 | DRG 683 ==
LOC: ED 08:10 → 2S 12:45 → SUATTDRO 12:45 → 2S 13:48